=== PATIENT | male | born 1955 | race Caucasian/White ===

== ENCOUNTER 2017-12-20 14:24 | Emergency (ER) | payer BC, OTHER ==
[2017-12-20 14:37] VITALS: TEMP 98
[2017-12-20] MEDS ORDERED: methylPREDNISolone SOD SUCCI 125 MG/2 ML VIAL IV STA (14:57)
[2017-12-20] MEDS ORDERED: SODIUM CHLORIDE 0.9% 1,000 ML IV STA (14:57)
[2017-12-20] MEDS ORDERED: diphenhydrAMINE 50 MG CAP PO STA (14:57)
[2017-12-20] MEDS ORDERED: FAMOTIDINE 20 MG/2 ML VIAL IV STA (14:57)
--- NOTE | 2017-12-20 15:00 | ED ---
Allergic Reaction HPI - General Chief complaint: Allergic Reaction Stated complaint: Bee sting Time Seen by Provider: 12/20/17 14:51 Source: patient Mode of arrival: ambulatory Limitations: no limitations - History of Present Illness Initial Comments: Patient is a 62-year-old male presenting for bee sting on the right forearm and hand. He states that he knows he has ALLERGIC reactions to this and has had this in the past. This occurred 2 hours prior to presentation when he was working in his garage. He states that he did take 2 tablets of Benadryl but they were very old so he is not sure if they were effective or not. He denies any shortness of breath, wheezing, trouble swallowing, tongue swelling, lip swelling or difficulty breathing. - Related Data Home Medications Medication Instructions Recorded Confirmed risperiDONE [RisperDAL] 0.5 mg PO HS 08/03/15 08/03/15 Previous Rx's Medication Instructions Recorded Lisinopril [Prinivil] 10 mg PO DAILY 14 Days tab 01/15/14 Omeprazole [PriLOSEC] 20 mg PO AC-BRKFST 20 Days cap 01/15/14 Tamsulosin [Flomax] 0.4 mg PO DAILY #7 cap 08/03/15 EPINEPHrine (Auto Inject) [Epipen] 0.3 mg IM ONCE PRN #2 syringe 12/20/17 predniSONE 50 mg PO DAILY #5 tablet 12/20/17 Allergies Allergy/AdvReac Type Severity Reaction Status Date / Time bee venom protein (honey bee) Allergy Unknown Verified 12/20/17 14:37 Review of Systems ROS Statement: Those systems with pertinent positive or pertinent negative responses have been documented in the HPI. Constitutional: Negative for chills, fatigue and fever. HENT: Negative for congestion. Respiratory: Negative for chest tightness, shortness of breath and wheezing. Negative for cough Cardiovascular: Negative for chest pain and palpitations. Gastrointestinal: Negative for abdominal pain. Negative for abdominal distention , diarrhea, nausea and vomiting. Genitourinary: Negative for dysuria. Musculoskeletal: Negative for back pain, neck pain and neck stiffness. Positive for right hand swelling Skin: Negative for color change. Neurological: Negative for dizziness, speech difficulty, weakness and light- headedness. Psychiatric/Behavioral: Negative for agitation and confusion. Negative for anxiety ROS Other: All systems not noted in ROS Statement are negative. Past Medical History Past Medical History: GERD/Reflux, Hypertension History of Any Multi-Drug Resistant Organisms: None Reported Past Surgical History: No Surgical Hx Reported Past Psychological History: No Psychological Hx Reported Smoking Status: Current every day smoker Past Alcohol Use History: None Reported Past Drug Use History: None Reported General Exam - General Exam Comments Initial Comments: Constitutional: Pt is oriented to person, place, and time. Pt appears well- developed and well-nourished. No distress. HENT: Head: Normocephalic and atraumatic. Eyes: EOM are normal. Neck: Normal range of motion. Neck supple. Cardiovascular: Normal rate, regular rhythm, S1 normal, S2 normal and normal heart sounds. Exam reveals no gallop and no friction rub. No murmur heard. Pulmonary/Chest: Effort normal and breath sounds normal. No tachypnea and no bradypnea. No respiratory distress. No wheezes or rales noted. Abdominal: Soft. Bowel sounds are normal. Pt exhibits no shifting dullness, no distension, no pulsatile liver, no fluid wave, no abdominal bruit and no ascites. There is no tenderness. There is no rigidity, no rebound, no guarding, no tenderness at McBurney's point and negative Car's sign. Musculoskeletal: Normal range of motion. Diffuse effusion and swelling of the right hand. Neurovascularly intact. Neurological: Pt is alert and oriented to person, place, and time. No cranial nerve deficit. Skin: Skin is warm and dry. No rash noted. Pt is not diaphoretic. No erythema. No pallor. Psychiatric: Pt has a normal mood and affect. Pt behavior is normal. Thought content normal. Limitations: no limitations Course Vital Signs 12/20/17 12/20/17 12/20/17 14:35 15:00 16:00 Temperature 98 F Pulse Rate 107 H 90 Respiratory 18 16 20 Rate Blood Pressure 138/85 128/60 O2 Sat by Pulse 95 97 Oximetry Medical Decision Making - Medical Decision Making Because the patient showed no evidence of airway compromise, it was felt that he could be treated with Benadryl, Solu-Medrol, fluids. He was given these medications and there was mild improvement. He was also given a prescription for 5 day course of prednisone as well as a prescription for epinephrine pen. He is advised to follow-up with his PCP in next 1-2 days and/or return to emergency department the symptoms worsen. Disposition Clinical Impression: Allergic reaction, Bee sting Disposition: HOME SELF-CARE Condition: Good Instructions: Anaphylaxis (ED) Prescriptions: EPINEPHrine (Auto Inject) [Epipen] 0.3 mg IM ONCE PRN #2 syringe PRN Reason: Anaphylaxis predniSONE 50 mg PO DAILY #5 tablet Is patient prescribed a controlled substance at d/c from ED?: No Referrals: Winston Cesar MD [Primary Care Provider] - 1-2 days Time of Disposition: 15:53
[2017-12-20] MEDS ORDERED: diphenhydrAMINE 50 MG/ML 1 ML VIAL IVP STA (15:14)
[2017-12-20 16:08] VITALS: BP 128/60; PULSE 90; RESP 20
== END 2017-12-20 16:00 | disposition home or self-care (01) ==
LOC: EC 14:24
DX: T63.441A Toxic effect of venom of bees, accidental (unintentional), initial encounter (principal); F17.200 Nicotine dependence, unspecified, uncomplicated; Z79.899 Other long term (current) drug therapy; Z91.030 Bee allergy status; Z53.29 Procedure and treatment not carried out because of patient's decision for other reasons
CPT/HCPCS: 99283; J1200; J2930